=== PATIENT | male | born 1955 | race Caucasian/White ===

== ENCOUNTER 2023-01-11 07:46 | Day surgery (SDC) | payer OTHER ==
[2023-01-06 13:04] VITALS: BMI 31.6
[2023-01-11 08:43] VITALS: RESP 16
[2023-01-11] MEDS ORDERED: BUPIVACAINE HCL/PF 0.5% (5 MG/ML) 30 ML VIAL IJ ONE (09:16)
[2023-01-11] MEDS ORDERED: DEXAMETHASONE SOD PHOSPHATE/PF 10 MG/ML SDV ONE (09:16)
[2023-01-11] MEDS ORDERED: BUPIVACAINE HCL/PF 2.5 MG/ML - 30 ML VIAL IJ ONE (09:17)
[2023-01-11] MEDS ORDERED: MIDAZOLAM HCL 2 MG/2 ML SINGLE DOSE VIAL ONE ×2 (09:20→10:44)
[2023-01-11] MEDS ORDERED: ceFAZolin SODIUM 1 GM VIAL ONE (10:07)
[2023-01-11] MEDS ORDERED: PROPOFOL 20 ML ONE (10:09)
[2023-01-11] MEDS ORDERED: DEXAMETHASONE SOD PHOSPHATE 4 MG/1 ML VIAL ONE (10:15)
[2023-01-11] MEDS ORDERED: ONDANSETRON 4 MG/2 ML VIAL ONE (10:15)
[2023-01-11 11:31] VITALS: PULSE 78; TEMP 97.8
[2023-01-11 12:06] VITALS: BP 129/80
== END 2023-01-11 12:06 | disposition home or self-care (01) ==
LOC: FASU 07:46
PROVIDERS: ATTEND Orthopaedic Surgery Hand Surgery
PROC: 0LQ30ZZ Repair Right Upper Arm Tendon, Open Approach (ICD-10-PCS; principal; 2023-01-11 10:11)
DX: S46.211A Strain of muscle, fascia and tendon of other parts of biceps, right arm, initial encounter (principal); X58.XXXA Exposure to other specified factors, initial encounter; Y93.9 Activity, unspecified; Y92.9 Unspecified place or not applicable
CPT/HCPCS: C1713